=== PATIENT | female | born 1965 | race Caucasian/White ===

== ENCOUNTER 2021-02-19 19:21 | Emergency (ER) | payer OTHER ==
[2021-02-19 19:52] LABS: BASOPHIL 0.7 % (0-2); HCT 39.4 % (37.0-47.0); HGB 13.9 g/dl (12.5-16.0); LYMPHOCYTE 32.5 % (15-48); MCH 29.5 pg (25.0-31.0); MCHC 35.3 g/dL (32.0-36.0); MCV 83.7 fL (78.0-100.0); MONOCYTE 6.3 % (0-12); MPV 8.2 fL (6.0-9.5); NEUTROPHIL 59.3 % (41-80); NRBC 0; PLT 296 K/uL (150-400); RBC 4.71 M/uL (4.20-5.40); RDW 11.9 % (11.5-14.0); WBC 5.8 K/uL (4.0-10.5)
[2021-02-19 19:57] LABS: INR 1.1 (0.9-1.2); PROTHROMBIN TIME 13.6 SECONDS (11.8-13.4); PTT 27.5 SECONDS (24.4-34.7)
[2021-02-19 20:17] LABS: ALBUMIN 4.2 g/dL (3.4-5.0); BILIRUBIN - TOTAL 0.7 mg/dL (0.2-1.0); BUN/CREAT RATIO (CALC) 6.2 RATIO; CREATININE 0.64 mg/dL (0.51-0.95); POTASSIUM 3.9 mmol/L (3.5-5.1); TOTAL PROTEIN 7.2 g/dL (6.4-8.2)
[2021-02-19 22:44] LABS: IRON % SATURATION 16.5 %SAT (20-50); MAGNESIUM 2.1 mg/dL (1.8-2.4)
== END 2021-02-20 01:50 | disposition home or self-care (01) ==
LOC: FER 19:21
PROVIDERS: Emergency Medicine
DX: R07.89 Other chest pain (principal); E61.1 Iron deficiency; Z86.73 Personal history of transient ischemic attack (TIA), and cerebral infarction without residual deficits; Z88.8 Allergy status to other drugs, medicaments and biological substances; Z88.1 Allergy status to other antibiotic agents
CPT/HCPCS: 36415; 71045; 80053; 83540; 83550; 83735; 84100; 84484; 85025; 85379; 85610; 85730; 93005; J1170; J2405; J7030

== ENCOUNTER 2021-09-03 17:19 | Emergency (ER) | payer OTHER ==
[2021-09-03] MEDS ORDERED: MEDROL 4MG DOSEP4 MG PO (21:02)
== END 2021-09-03 21:10 | disposition home or self-care (01) ==
LOC: FER 17:19
DX: M54.50 Low back pain, unspecified (principal); G89.29 Other chronic pain; Z88.1 Allergy status to other antibiotic agents; Z88.2 Allergy status to sulfonamides; Z88.8 Allergy status to other drugs, medicaments and biological substances; Z91.040 Latex allergy status
CPT/HCPCS: 72131; J1170; J7512